=== PATIENT | female | born 1950 | race Caucasian/White ===

== ENCOUNTER → 2016-10-26 | Outpatient (CLI) | payer MEDICARE, OTHER ==
[~2016-10-26] MED LIST: BIO IDENTICAL HORMON PO; CITRACAL+D(315M1 TAB PO; COLACE100 MG PO; GARLIC1 EAC1 PO; MILK OF MA400 MG/5 M PO; NORCO 10-325 T1 EACH PO; RELPAX20 MG PO; THERAGRAN-M1 TAB PO; TORADOL10 MG PO; TYLENOL325 MG PO; ZANTAC300 MG PO; ZYRTEC10 M1 PO
== END | disposition disaster alternative care site (69) ==
LOC: GRAD 08:09
DX: M54.9 Dorsalgia, unspecified (principal); M47.897 Other spondylosis, lumbosacral region; R60.0 Localized edema